=== PATIENT | male | born 1970 ===

== ENCOUNTER 2019-02-03 15:03 | Emergency (ER) | payer MEDICAID ==
[~2019-02-03] VITALS: Ht 177.8 cm; Wt 68.0 kg
--- NOTE | 2019-02-03 15:00 | Emergency Room Report ---
History of Present Illness General Chief Complaint: Seizure Source: Family Member, EMS Present Illness HPI Disclaimer: Please note that this report is being documented using DRAGON technology. This can lead to erroneous entry secondary to incorrect interpretation by the dictating instrument. HPI: Patient is a male apparently in his 50s or 60s with a reported seizure disorder presenting in for witnessed generalized tonic clonic seizure. The patient at this time cannot provide any significant history due to his postictal state. Per EMS, he was with his ex- at [facility] when he suddenly collapsed and had a generalized tonic-clonic seizure for less than 1 minute. He was postictal after. EMS denies head injury. He awakens to painful stimuli for EMS and is moving all extremities. Unknown what he takes for seizure disorder. EMS states the told them he was complaining of chest pain earlier in the morning. She is reportedly en route to provide further information. Does not appear to have sustained any major injuries. PMH: Seizure disorder PSH: Unknown Allergies: Unknown Social Hx: Unknown Allergies: Coded Allergies: ERYTHROMYCIN BASE (Verified Allergy, Unknown, 09/21/11) PENICILLINS (Verified Allergy, Unknown, 07/14/15) Patient History Limited by: medical condition Review of Systems All Other Systems: limited - Due to clinical condition Physical Exam General: Somnolent, arousable HEENT: NC/AT. EOMI. pupils are 4 mm and reactive bilaterally. Dry mucous membranes Neck: Supple, trachea midline Cardiovascular: RRR. S1 and S2 normal. No murmur appreciated Resp: Normal work of breathing. No cough, wheezing or crackles appreciated Abdomen: Abdomen is soft, nondistended. Nontender Skin: Intact. No abrasions, laceration or rash over the exposed skin MSK: Normal tone and bulk. Moving all extremities. No obvious deformity. Neuro: A postictal. Somnolent but arousable. Moving all extremities. Medical Decision Making Diagnostic Impression: Primary Impression: Epileptic seizure, generalized Additional Impressions: Suicidal ideation Nonadherence to medication ER Course 48-year-old male presents for evaluation after witnessed generalized tonic clonic seizure. At this time, he is postictal but does not appear to have suffered any significant injuries. He does arouse to painful stimuli and is moving all extremities. Will check labs including antiepileptic drug levels, tox screen, EKG and chest x-ray. Receiving IV fluids. Will give Keppra for seizure prophylaxis. Laboratory Tests Test 02/03/19 15:14 White Blood Count 13.5 K/UL (4.8-10.8) H Red Blood Count 3.91 M/UL (4.70-6.10) L Hemoglobin 13.1 G/DL (14.2-18.0) L Hematocrit 36.4 % (42.0-52.0) L Mean Corpuscular Volume 93 FL (80-99) Mean Corpuscular Hemoglobin 33.5 PG (27.0-31.0) H Mean Corpuscular Hemoglobin Concent 35.9 G/DL (32.0-36.0) Red Cell Distribution Width 11.0 % (11.6-14.8) L Platelet Count 301 K/UL (150-450) Mean Platelet Volume 5.5 FL (6.5-10.1) L Neutrophils (%) (Auto) 68.6 % (45.0-75.0) Lymphocytes (%) (Auto) 24.5 % (20.0-45.0) Monocytes (%) (Auto) 5.8 % (1.0-10.0) Eosinophils (%) (Auto) 0.5 % (0.0-3.0) Basophils (%) (Auto) 0.6 % (0.0-2.0) Urine Color Yellow Urine Appearance Clear Urine pH 5 (4.5-8.0) Urine Specific [place] 1.020 (1.005-1.035) Urine Protein Negative (NEGATIVE) Urine Glucose (UA) Negative (NEGATIVE) Urine Ketones 1+ (NEGATIVE) H Urine Blood Negative (NEGATIVE) Urine Nitrite Negative (NEGATIVE) Urine Bilirubin Negative (NEGATIVE) Urine Urobilinogen Normal MG/DL (0.0-1.0) Urine Leukocyte Esterase 1+ (NEGATIVE) H Urine RBC 0-2 /HPF (0 - 0) H Urine WBC 5-10 /HPF (0 - 0) H Urine Squamous Epithelial Cells Occasional /LPF Urine Bacteria Few /HPF (NONE) Sodium Level 143 MMOL/L (136-145) Potassium Level 3.8 MMOL/L (3.5-5.1) Chloride Level 111 MMOL/L (98-107) H Carbon Dioxide Level 26 MMOL/L (21-32) Anion Gap 6 mmol/L (5-15) Blood Urea Nitrogen 18 mg/dL (7-18) Creatinine 1.0 MG/DL (0.55-1.30) Estimat Glomerular Filtration Rate > 60 mL/min (>60) Glucose Level 112 MG/DL (74-106) H Calcium Level 8.7 MG/DL (8.5-10.1) Total Bilirubin 0.3 MG/DL (0.2-1.0) Aspartate Amino Transf (AST/SGOT) 12 U/L (15-37) L Alanine Aminotransferase (ALT/SGPT) 14 U/L (12-78) Alkaline Phosphatase 53 U/L (46-116) Total Creatine Kinase 50 U/L (26-308) Creatine Kinase MB 0.6 NG/ML (0.0-3.6) Creatine Kinase MB Relative Index 1.2 Troponin I 0.003 ng/mL (0.000-0.056) Total Protein 6.3 G/DL (6.4-8.2) L Albumin 3.2 G/DL (3.4-5.0) L Globulin 3.1 g/dL Albumin/Globulin Ratio 1.0 (1.0-2.7) Urine Opiates Screen Positive (NEGATIVE) H Acetaminophen Level 5 MCG/ML (10-30) L Urine Barbiturates Screen Negative (NEGATIVE) Phenytoin (Dilantin) Level 0.5 ug/mL (10-20) L Valproic Acid (Depakene) Level < 3 MCG/ML (50-100) L Carbamazepine (Tegretol) Level < 0.5 ug/mL (4.0-12.0) L Phencyclidine (PCP) Screen Negative (NEGATIVE) Urine Amphetamines Screen Negative (NEGATIVE) Phenobarbital Level < 1.0 ug/mL (15-40) L Urine Benzodiazepines Screen Negative (NEGATIVE) Urine Cocaine Screen Negative (NEGATIVE) Urine Marijuana (THC) Screen Positive (NEGATIVE) H Serum Alcohol < 3 mg/dL EKG Diagnostic Results EKG Time: 15:16 EP Interpretation: Right bundle branch block, normal sinus rhythm otherwise, normal intervals Rhythm: NSR ST Segments: no acute changes Other Impression Right bundle branch block pattern, no ischemic changes Rhythm Strip Diag. Results Rhythm Strip Time: 15:16 EP Interpretation: yes Rate: 80s Rhythm: NSR Reevaluation Time: 16:19 Status: unchanged Reevaluation Impression Patient remains somnolent but is more arousable than in the past. Labs showed no significant abnormalities although all of his antiepileptic drug levels are low. He is receiving 1 g of Keppra for seizure prophylaxis. Will be allowed to metabolize in the emergency department. Admission only if no significant improvement. 1840: Patient is now awake, alert and oriented. Ambulate with a steady gait to the bathroom. His is present who confirms that he had a generalized tonic- clonic seizure today but also adds that he has been complaining of worsening depression and made suicidal statements earlier. The patient confirms this stating that he was very depressed earlier today due to recent life stressors. He has been thinking about cutting his wrists and is no longer taking any of his medications. He feels he is letting himself go completely. In light of his multiple complaints I believe the patient would benefit from admission. 2015: Discussed with Dr. Escobedo who is excepted the patient will arrange for transfer. Patient and family agreed with this treatment plan Disposition: XFER SHT-TRM HOSP Condition: Improved August Iyer MD Feb 03, 2019 15:00
[~2019-02-03 15:03] MED LIST: NORCO 10/3251 EA ORAL
--- NOTE | 2019-02-03 15:05 | NUR ---
Note mili in EDM - 02/03/19 at 1523 by DIMPLE ED Nurse Note: Patient was brought by RA due to Grandmal seizure witnessed by a family member. It lasted for a couple of seconds. No tounge laceration, no incontinence noted. Patient is unconcious, not responsive to verbal stimuli, tav
--- NOTE | 2019-02-03 15:23 | NUR ---
ED Nurse Note: Patient brought by RA due to Grandmal seizure that was lasted for a couple of minutes witnessed by a family member. No tounge laceration noted, no incontinence. Patient has hx of seizure. Patient is unconscious, not responsive to verbal and tactile stimuli. Applied padded siderails, placed bed on lowest position. On therapy @ 2L/min.
[2019-02-03 15:33] LABS: APPEARANCE,URINE CLEAR; BILIRUBIN, URINE NEGATIVE (NEGATIVE); GLUCOSE, URINE (UA) NEGATIVE (NEGATIVE); KETONES,URINE 1+ (NEGATIVE); LEUKOCYTE ESTERASE ,URINE 1+ (NEGATIVE); NITRITE,URINE NEGATIVE (NEGATIVE); PH,URINE 5 (4.5-8.0); PROTEIN,URINE NEGATIVE (NEGATIVE); UROBILINOGEN,URINE NORMAL MG/DL (0.0-1.0)
[2019-02-03 15:34] VITALS: BP 130/66
[2019-02-03 15:39] LABS: ANION GAP 6 mmol/L (5-15); BLOOD UREA NITROGEN 18 mg/dL (7-18); CALCIUM 8.7 MG/DL (8.5-10.1); CARBON DIOXIDE 26 MMOL/L (21-32); CHLORIDE 111 MMOL/L (98-107); POTASSIUM 3.8 MMOL/L (3.5-5.1); SODIUM 143 MMOL/L (136-145)
[2019-02-03 15:41] LABS: COLOR,URINE YELLOW
[2019-02-03 15:44] LABS: BASOPHILS % (AUTO) 0.6 % (0.0-2.0); EOSINOPHILS % (AUTO) 0.5 % (0.0-3.0); HEMATOCRIT 36.4 % (42.0-52.0); HEMOGLOBIN 13.1 G/DL (14.2-18.0); LYMPHOCYTES % (AUTO) 24.5 % (20.0-45.0); MEAN CORPUSCULAR VOLUME 93 FL (80-99); MONOCYTES % (AUTO) 5.8 % (1.0-10.0); NEUTROPHILS % (AUTO) 68.6 % (45.0-75.0); PLATELET COUNT 301 K/UL (150-450); RED BLOOD COUNT 3.91 M/UL (4.70-6.10); WHITE BLOOD COUNT 13.5 K/UL (4.8-10.8)
[2019-02-03 15:52] LABS: ALANINE AMINOTRANSFERASE 14 U/L (12-78); ALBUMIN 3.2 G/DL (3.4-5.0); ALKALINE PHOSPHATASE 53 U/L (46-116); ASPARTATE AMINO TRANSFERASE 12 U/L (15-37); BILIRUBIN,TOTAL 0.3 MG/DL (0.2-1.0); CKMB 0.6 NG/ML (0.0-3.6); CREATINE KINASE 50 U/L (26-308)
[2019-02-03] MEDS ORDERED: levETIRAcetam 1,000mg/NS100ml 100 ML IVPB ONE (16:30)
[2019-02-03 17:31] VITALS: BP 129/72
--- NOTE | 2019-02-03 17:54 | NUR ---
ED Nurse Note: Pt is more alert at this time, cooperative with staffs but still very sleepy.
--- NOTE | 2019-02-03 18:06 | NUR ---
ED Nurse Note: Patient ias awake, alert and verbally responsive. Able to walk to the restroom with steady gait.
--- NOTE | 2019-02-03 18:41 | NUR ---
ED Nurse Note: Patient and family is being aggressive and loud with staffs at this time.
--- NOTE | 2019-02-03 18:41 | NUR ---
ED Nurse Note: When asked if patient has SI/HI. He said yes but no specific plan. Ex- reported " he has always said that but never tried to hurt himself"
--- NOTE | 2019-02-03 19:00 | NUR ---
HAND-OFF: Report given to SANDRA Trujillo .
[2019-02-03 19:30] VITALS: BP 117/63
--- NOTE | 2019-02-03 19:30 | NUR ---
ED Nurse Note: Recieved pt on gurney asleep, arouses to tactile stimuli, pt is post-ictal and has slow response, on seizure precautions , side rails padded, no sz activity ntoed, iv site patent, pt spouse at bedside, nad or changes noted, will resume care as rodered and prepare for admission to hospital when bed available.
[2019-02-03 21:00] VITALS: BP 109/64
--- NOTE | 2019-02-03 21:30 | NUR ---
ED Nurse Note: Pt continues to rest quietly in bed, sleeping,a rouses to verbal stimuli, pt still is slightly post-ictal with slow response, remains at bedside, iv site patent, no seizure activity noted, no cp, no sob, waiting for informatin for pt dispsition and possible transfer, will continue to closely monitor, pt also on suicidal precautions for previous verbalization of S.I., when asked now pt does not respond.
--- NOTE | 2019-02-03 22:05 | NUR ---
ED Nurse Note: PT BEING TRANSFERRED TO [facility], REPORT CALLED TO SANDRA BAEZA AT [phone], REPORT GIVEN ALONG WITH ALL PERTINENT LABS,ETC, PT SPOUSE AWARE, NO ACUTE CHANGES OR INCREASED DISTRESS, WILL CONTINUE TO MONITOR WHILE WAITING FOR AMBULANCE ETA.
--- NOTE | 2019-02-03 22:15 | NUR ---
ED Nurse Note: PT HEARD REPORT BEING GIVEN AND AWAKENED SUDDENNLY YELLING AND SHOUTING WITH AT BEDSIDE, BOTH PARTIES ARGUING VERY LOUDLY AND SHOUTING PROFANITY AT EACH OTHER, PT IS ANGRY STATING SAID HE IS SUICIDAL AND HE DID NOT SAY THAT, WHEN ASKED WHY DID HE NOT ANSWER ME PT JUST STATES HE IS NOT SURE, PT STATES HE IS FINE AND WANTS TO GO HOME, PT AMBULATED TO BATHROOM, GAIT STEADY, DENIES CP, SOB, OR ANY OTHER COMPLAINTS, MD AWARE AND AT BEDSIDE.
[2019-02-03] MEDS ORDERED: KEPPRA500 M4 ORAL (22:26)
[2019-02-03 22:30] VITALS: BP 117/63
--- NOTE | 2019-02-03 22:30 | NUR ---
ED Nurse Note: PT ASSESSED AND SEEN BY , PT IS BEING D/C TO HOME, PT WITH AND SISTER, PT IS AMBULATORY, NO SZ ACTIVITY, DENIES S.I OR HI, DENIES CP OR ANY PAIN, NO SOB OR LABORED BREATHING, PT GIVEN WATER TO DRINK, TOELRATED WELL, PT CHANGED INTO CLOTHING AND ASKING/DEMANDING TO LEAVE, PT GIVEN D/C INSTRUCTIONS AND F/U INFO, IV LINE REMOVED WITHOUT COMPLICATIONS AND ARMBAND ALSO, NAD NOTED PT LEAVING WITH FAMILY WITH PRESCRIPTIONS ALSO FOR MEDS.
--- NOTE | 2019-02-04 12:14 | Cardiology Report ---
APPROVED REPORT EKG Measurement Heart [id number] Normal sinus rhythm Possible Left atrial enlargement Nonspecific ST abnormality Abnormal ECG
--- NOTE | 2019-02-04 12:50 | Diagnostic Imaging Report ---
Indication: Chest pain Comparison: 07/14/2015 A single view chest radiograph was obtained. Findings: Borderline cardiomegaly demonstrated. There are prominent central hilar vessels and pulmonary vascularity demonstrated. Bones are osteopenic. IMPRESSION: Pulmonary vascular congestion
== END 2019-02-03 22:30 | disposition short-term general hospital (02) ==
LOC: EDBD 15:03 → EMR 19:48
DX: G40.909 Epilepsy, unspecified, not intractable, without status epilepticus (principal); R45.851 Suicidal ideations; Z91.14 Patient's other noncompliance with medication regimen; Z88.0 Allergy status to penicillin; Z88.8 Allergy status to other drugs, medicaments and biological substances; I45.10 Unspecified right bundle-branch block
CPT/HCPCS: 36415; 71045; 80053; 80156; 80164; 80184; 80185; 80307; 80329; 81003; 82550; 82553; 84484; 85025; 93005; 96361; 96374; 99284; J1953